=== PATIENT | female | born 1955 | race Caucasian/White ===

== ENCOUNTER 2017-05-08 02:32 | Emergency (ER) | payer OTHER ==
[~2017-05-08] VITALS: Ht 167.6 cm; Wt 74.8 kg
--- NOTE | ~2017-05-08 | EKG ---
PATIENT: BEN ROBBINS UNIT #: [id number] Ventricular Rate: 71 BPM Atrial Rate: 71 BPM P-R Interval: 158 ms QRS Duration: 80 ms Q-T Interval: 424 ms QTC Calculation(Bezet): 460 ms P Libby: 42 degrees Calculated R Libby: 33 degrees Calculated T Libby: 47 degrees Diagnosis Line: Normal sinus rhythm Diagnosis Line: Normal ECG Diagnosis Line: When compared with ECG of 22-AUG-2014 12:35, Diagnosis Line: No significant change was found Diagnosis Line: Confirmed by ALAYNA ANDERSON MD ([id number]) on Diagnosis Line: 05/11/2017 11:17:59 AM INTERPRETING MD: MONICA PORTILLO
--- NOTE | ~2017-05-08 | CT16 ---
[facility] A Service of [facility] RADIOLOGY TEXT RESULTS PATIENT: BEN ROBBINS LOCATION: SED : 57 UNIT #: [id number] AGE: [address]: Rickie Srivastava DO SEX: F ORDER DR: [id number] [place] [id number] E MR#: [id number] Acc #: [id number] NAME: BEN ROBBINS : 1955 SEX: F STUDY DATE/TIME: 05/08/2017 6:40 UNIT: SED ROOM: STUDY DESCRIPTION: CT Angio Chest for PE Attending Physician: Rickie Srivastava D.O.. Ordering Physician: Rickie Srivastava D.O.. Primary Care Physician: Wanda Sheffield M.D. MEDICAL IMAGING REPORT This report is preliminary unless electronic signature is present. EXAM Chest CT PE protocol with contrast, 05/08/2017. INDICATIONS 62-year-old female with an elevated D-dimer and chest pain extending down the right arm. History of acid reflux, chronic back pain, anxiety. Gastric lymphoma. TECHNIQUE Contrast enhanced CT scan chest PE protocol was performed with 3-D reformats. This CT exam was performed with one or more of the following radiation dose reduction techniques: Automatic exposure control, adjustment of mA and/or kV according to patient size, and iterative reconstruction. COMPARISON No comparisons. FINDINGS CT chest: Aorta demonstrates no aneurysm or dissection. There is no evidence of acute pulmonary embolus in the central pulmonary arterial tree. No pericardial effusion or axillary or mediastinal adenopathy. Small reactive-appearing hilar nodes. Included upper abdomen unremarkable. Lungs demonstrate areas of atelectasis/scarring in the lower lobes, right slightly greater than left. There is old healed granulomatous disease. No distinct evidence of pneumonia. No suspicious bone lesion. IMPRESSION 1. No aortic aneurysm or dissection. 2. No PE. 3. The lungs are clear with exception of some scattered areas of [facility] A Service of [facility] RADIOLOGY TEXT RESULTS PATIENT: BEN ROBBINS LOCATION: SED : 57 UNIT #: [id number] AGE: [address]: Rickie Srivastava DO SEX: F ORDER DR: atelectasis or scarring in the lung bases right greater than left. 4. Upper abdomen negative Dictated by... Dale Gilmore M.D. THIS IS AN ELECTRONICALLY VERIFIED REPORT Dale Gilmore M.D. at 05/09/2017 7:33 AM Eliel TD: 05/09/2017 06:03 JOB #: [id number] MEDICAL IMAGING REPORT Page 1 of 1
--- NOTE | ~2017-05-08 | CR72 ---
[facility]. [facility] [place] A Service of [facility] RADIOLOGY TEXT RESULTS PATIENT: BEN ROBBINS LOCATION: SED : 57 UNIT #: [id number] AGE: [address]: Rickie Srivastava DO SEX: F ORDER DR: [id number] [place] [id number] E MR#: [id number] Acc #: [id number] NAME: BEN ROBBINS : 1955 SEX: F STUDY DATE/TIME: 05/08/2017 4:31 UNIT: SED ROOM: STUDY DESCRIPTION: CR Chest Single View Portable Attending Physician: Rickie Srivastava D.O.. Ordering Physician: Rickie Srivastava D.O.. Primary Care Physician: Wanda Sheffield M.D. MEDICAL IMAGING REPORT This report is preliminary unless electronic signature is present. EXAM Chest x-ray, 05/08/2017 HISTORY 62-year-old female in the ED complaining of 1-day history of chest pain and shortness of air. TECHNIQUE AP portable chest x-ray. FINDINGS Heart size and pulmonary vascularity are within normal limits. The lungs are expanded and clear. No visible pulmonary infiltrate or pleural effusion. Old healed left 4th rib fracture. No change since 08/22/2014. IMPRESSION No active disease. No change since 08/22/2014. Dictated by... Suhas Art M.D. THIS IS AN ELECTRONICALLY VERIFIED REPORT Suhas Art M.D. at 05/09/2017 6:02 AM KALLI/patricia TD: 05/09/2017 04:18 JOB #: [id number] MEDICAL IMAGING REPORT Page 1 of 1
[~2017-05-08 02:32] MED LIST: FLEXERIL10 MG PO; LEXAPRO PO; VOLTAREN50 MG PO; VOLTAREN75 MG PO
[2017-05-08] MEDS ORDERED: LAMICTAL XR25 MG PO (02:43)
[2017-05-08] MEDS ORDERED: ZETIA PO (02:43)
[2017-05-08] MEDS ORDERED: LIPITOR40 MG PO (02:44)
[2017-05-08] MEDS ORDERED: PROTONIX PO (02:44)
[2017-05-08 03:48] LABS: BASOPHIL# 0.1 X10e3 (0-0.3); BASOPHIL% 0.9 % (0-2.5); EOSINOPHIL# 0.2 X10e3 (0-0.7); EOSINOPHIL% 2.6 % (0.0-7.0); HEMATOCRIT 39.2 % (35.0-45.0); HEMOGLOBIN 13.2 gm/dL (12.0-16.0); LYMPHOCYTE% 15.7 % (17.0-45.0); MEAN CELL VOLUME 88.1 FL (83-96); MEAN CORPUSCULAR HEMOGLOBIN 29.7 PG (28-34); MEAN CORPUSCULAR HGB CONC 33.7 g/dL (30-36); MEAN PLATELET VOLUME 7.3 FL (6.5-11.5); MONOCYTE# 0.8 X10e3 (0-1.0); MONOCYTE% 11.8 % (3.0-12.0); NEUTROPHIL# 4.5 X10e3 (1.5-7.1); PLATELET COUNT 211 X10e3 (140-420); RED BLOOD COUNT 4.45 X10e (3.90-5.30); RED CELL DISTRIBUTION WIDTH 13.4 % (11.0-15.5); WHITE BLOOD COUNT 6.5 X10e3 (4.0-10.5)
[2017-05-08 03:51] LABS: DIFF IND NO
[2017-05-08 03:53] LABS: PROTHROMBIN TIME (PATIENT) 11.7 SECONDS (9.5-12.4)
[2017-05-08 04:01] LABS: PARTIAL THROMBOPLASTIN TIME 25.7 SECONDS (25.6-38.1)
[2017-05-08 04:07] LABS: ALBUMIN SERUM 4.2 g/dL (3.5-5.0); BILIRUBIN, DIRECT 0.1 mg/dL (0.0-0.2); BILIRUBIN,INDIRECT 0.5 mg/dL (0.0-0.9); BILIRUBIN,TOTAL 0.6 mg/dL (0.2-2.0); CALCIUM SERUM 8.9 mg/dL (8.4-10.2); CREATININE SERUM 0.9 mg/dL (0.6-1.4); GLOM FILT RATE Estimated 69.1 mL/min (>60); POTASSIUM 3.7 mmol/L (3.5-5.1); PROTEIN TOTAL SERUM 7.4 g/dL (6.0-8.3)
[2017-05-08 04:56] LABS: POC - CKMB 5.5 ng/mL (0.0-7.9); POC - TROPONIN <0.05 ng/mL (<=0.05)
[2017-05-08 06:03] LABS: POC - CKMB 5.9 ng/mL (0.0-7.9); POC - TROPONIN <0.05 ng/mL (<=0.05)
== END 2017-05-08 07:32 | disposition home or self-care (01) ==
LOC: SED 02:32
PROVIDERS: Emergency Medicine
DX: S23.3XXA Sprain of ligaments of thoracic spine, initial encounter (principal); T14.8 Other injury of unspecified body region; X58.XXXA Exposure to other specified factors, initial encounter; Y92.9 Unspecified place or not applicable
CPT/HCPCS: 36415; 71010; 71275; 80048; 80076; 82553; 83690; 83874; 84484; 85025; 85379; 85610; 85730; 93005; 96374; 99284; J1885; Q9967